=== PATIENT | female | born 1955 | race American Indian/Alaskan Native ===

== ENCOUNTER 2017-02-01 07:00 | Inpatient (IN) | payer OTHER ==
[~2017-02-01] VITALS: Ht 163 cm; Wt 149.0 kg
[2017-02-02 05:13] LABS: HGB 11.7 g/dl (12.5-16.0); MCH 29.6 pg (25.0-31.0); MCHC 33.4 g/dL (32.0-36.0); MCV 88.6 fL (78.0-100.0); MPV 9.6 fL (6.0-9.5); RBC 3.95 M/uL (4.20-5.40); RDW 14.5 % (11.5-14.0); WBC 10.6 K/uL (4.0-10.5)
[2017-02-02 05:35] LABS: CREATININE 0.6 mg/dL (0.5-1.0); POTASSIUM 3.4 mmol/L (3.5-5.1)
[2017-02-03 07:12] LABS: HCT 32.5 % (37.0-47.0); HGB 10.6 g/dl (12.5-16.0); MCH 29.3 pg (25.0-31.0); MCHC 32.6 g/dL (32.0-36.0); MCV 89.8 fL (78.0-100.0); MPV 9.4 fL (6.0-9.5); RBC 3.62 M/uL (4.20-5.40); RDW 14.5 % (11.5-14.0); WBC 9.7 K/uL (4.0-10.5)
[2017-02-03 07:35] LABS: CREATININE 0.6 mg/dL (0.5-1.0); POTASSIUM 3.7 mmol/L (3.5-5.1)
== END 2017-02-03 17:47 | disposition home health service (06) | DRG 470 ==
LOC: FMS 07:00
PROVIDERS: ADMIT Orthopaedic Surgery
PROC: 8E0YXBZ Computer Assisted Procedure of Lower Extremity (ICD-10-PCS; 2017-02-01)
PROC: 0SRD0J9 Replacement of Left Knee Joint with Synthetic Substitute, Cemented, Open Approach (ICD-10-PCS; principal; 2017-02-01 07:00)
DX: M17.0 Bilateral primary osteoarthritis of knee (principal); Z68.41 Body mass index [BMI] 40.0-44.9, adult; I10 Essential (primary) hypertension; R35.1 Nocturia; H40.9 Unspecified glaucoma; E66.01 Morbid (severe) obesity due to excess calories; Z79.82 Long term (current) use of aspirin; Z83.3 Family history of diabetes mellitus; Z82.3 Family history of stroke; Z80.9 Family history of malignant neoplasm, unspecified
CPT/HCPCS: 36415; 73560; 80048; 86850; 86900; 86901; 88305; 88311; 94010; 97110; 97116; 97162; 97166; 97530; 97530-GP; 97535; C1713; C1776; J0131; J0697; J1170; J1885; J2270; J2405; J2704; J2710; J2795; J3010